=== PATIENT | male | born 1975 | race Two or more races ===

== ENCOUNTER 2024-02-26 08:52 | Emergency (ER) | payer BC ==
[~2024-02-26] VITALS: Ht 165.1 cm; Wt 74.8 kg
[2024-02-26 08:58] VITALS: O2SAT 100
[2024-02-26] MEDS ORDERED: OXYM15MI4 NS (09:48)
[2024-02-26] MEDS ORDERED: PSEU-249 PO (09:48)
[2024-02-26] MEDS ORDERED: AMOX-430 PO (09:48)
[2024-02-26] MEDS ORDERED: FLUT16SP16 BNOSTRILS (09:48)
== END 2024-02-26 10:02 | disposition home or self-care (01) ==
LOC: EDBD 08:58 → ER 08:58
DX: J32.9 Chronic sinusitis, unspecified (principal); Z79.899 Other long term (current) drug therapy
CPT/HCPCS: A4606; A4663